=== PATIENT | male | born 1995 | race Caucasian/White ===

== ENCOUNTER 2022-07-26 13:20 | Emergency (ER) | payer OTHER, SELFPAY ==
[2022-07-26 13:31] VITALS: BP 127/69; PULSE 73; RESP 16; TEMP 36.3; O2SAT 97; BMI 22.9
--- NOTE | 2022-07-26 13:53 | PC.NURSE ---
Patient ambulatory to room with steady gait.
[2022-07-26 14:18] LABS: Influenza A - CEPHEID Flu A NEGATIVE (NEGATIVE); Influenza B - CEPHEID Flu B NEGATIVE (NEGATIVE); Respiratory Syncytial Virus Negative (Negative)
[2022-07-26 14:22] LABS: COVID-19 CEPHEID 4-PLEX PCR Negative (Negative)
--- NOTE | 2022-07-26 15:05 | ED_ITS ---
HPI - Headache <Romina Caldera PA-C - Last Filed: 07/26/22 21:57> General Chief Complaint: Headache Stated Complaint: Headache Time Seen by Provider: 07/26/22 14:19 Mode of arrival: Ambulatory History of Present Illness HPI Narrative: the patient is 26 years old male without significant medical history presents today with the 24 hours history of body aches, headache, neck pain shoulder pain. He also may have some dry cough, sore throat. He denies nausea vomiting diarrhea, admits to some low-grade fever and chills. he did try some [id number] preparation, without relief. Onset (ago): hour(s) (24 ) Related Data Previous Rx's Medication Instructions Recorded naproxen 500 mg tablet (Naprosyn) 500 mg PO BID PRN pain fever 07/26/22 headache #20 tabs Allergies Allergy/AdvReac Type Severity Reaction Status Date / Time No Known Drug Allergies Allergy Verified 07/26/22 13:31 Review of Systems <Romina Caldera PA-C - Last Filed: 07/26/22 21:57> Review of Systems Narrative: 12 point review of systems is negative except for those stated above Patient History <Romina Caldera PA-C - Last Filed: 07/26/22 21:57> Social History Smoking Status: Former smoker Smoking Status: Former smoker alcohol intake frequency: a few times a week Substance Use Type: does not use Exam <Romina Caldera PA-C - Last Filed: 07/26/22 21:57> Narrative Exam Narrative: GENERAL: 26 year old patient appears stated age. Well-developed patient, in no acute distress. HEAD: Atraumatic. Normocephalic. EYES: Pupils equal round and reactive. Extraocular motions intact. No scleral icterus. No injection or drainage. ENT: Nose without bleeding, purulent drainage. Throat without erythema, tonsillar hypertrophy or exudate. Airway patent. NECK: Trachea midline. Non tender CARDIOVASCULAR: Regular rate and rhythm without murmurs, gallops, or rubs. RESPIRATORY: Clear to auscultation. Breath sounds equal bilaterally. No wheezes, rales, or rhonchi. GASTROINTESTINAL: Abdomen soft, non-tender, nondistended. EXTREMITIES: No edema or joint tenderness. BACK: upper trapezial areas slightly tender on percussion, paracervical muscle tenderness, without deformity or crepitance. No flank tenderness. NEURO: AOx3. no focal deficits SKIN: No rash or erythema of visible areas Initial Vital Signs Initial Vital Signs: Vital Signs Temperature 97.4 F L 07/26/22 13:31 Pulse Rate 73 07/26/22 13:31 Respiratory Rate 16 07/26/22 13:31 Blood Pressure 127/69 07/26/22 13:31 Pulse Oximetry 97 07/26/22 13:31 Oxygen Delivery Method 07/26/22 13:31 <Nelly Montenegro DO - Last Filed: 07/30/22 01:58> Initial Vital Signs Initial Vital Signs: Vital Signs Temperature 97.4 F L 07/26/22 13:31 Pulse Rate 73 07/26/22 13:31 Respiratory Rate 16 07/26/22 13:31 Blood Pressure 127/69 07/26/22 13:31 Pulse Oximetry 97 07/26/22 13:31 Oxygen Delivery Method 07/26/22 13:31 Course <Romina Caldera PA-C - Last Filed: 07/26/22 21:57> Orders Ordered: ED Orders 07/26/22 13:35 Covid-19 + FLU A/B + RSV - PCR Stat Vital Signs Vital signs: Vital Signs - 8 hr 07/26/22 13:31 Temperature 97.4 F L Pulse Rate 73 Respiratory Rate 16 Blood Pressure 127/69 Pulse Oximetry 97 Oxygen Delivery Method Room Air <Nelly Montenegro DO - Last Filed: 07/30/22 01:58> Orders Ordered: ED Orders 07/26/22 13:35 Covid-19 + FLU A/B + RSV - PCR Stat Vital Signs Vital signs: Vital Signs - 8 hr 07/26/22 13:31 Temperature 97.4 F L Pulse Rate 73 Respiratory Rate 16 Blood Pressure 127/69 Pulse Oximetry 97 Oxygen Delivery Method Room Air MDM - Headache <Romina Caldera PA-C - Last Filed: 07/26/22 21:57> Differential Diagnosis Differential diagnosis: Likely other ( upper respiratory viral syndrome) Lab Data Labs: Lab Results 07/26/22 Range/Units 13:35 SARS-CoV-2 (PCR) Negative (Negative) Influenza A (RT-PCR) Flu a negative (NEGATIVE) Influenza B (RT-PCR) Flu b negative (NEGATIVE) RSV (PCR) Negative (Negative) MDM Narrative Medical decision making narrative: discussed with patient diagnosis and treatment. Multiple etiologies for patient's symptoms considered including, but not limited to: Tension headache, upper respiratory infection due to several respiratory viruses Prior Charts reviewed: yes Labs reviewed and interpreted by myself: yes Patient's symptoms improved over duration of stay Findings and discharge diagnosis discussed with patient/family followed by verbalization of understanding Return precautions discussed with patient/family whom verbalize understanding of diagnosis and plan <Nelly Montenegro, DO - Last Filed: 07/30/22 01:58> Lab Data Labs: Lab Results 07/26/22 Range/Units 13:35 SARS-CoV-2 (PCR) Negative (Negative) Influenza A (RT-PCR) Flu a negative (NEGATIVE) Influenza B (RT-PCR) Flu b negative (NEGATIVE) RSV (PCR) Negative (Negative) Discharge Plan Departure Patient Disposition: Home Clinical Impression: Myalgia Headache Qualifiers: Headache type: cervicogenic headache Qualified Code(s): G44.86 - Cervicogenic headache Instructions: DI for Headache Activity Restrictions/Additional Instructions: *You have been diagnosed with headache probably due to viral illness *What to do: *Please continue to take your regular medications as directed. New medication prescriptions sent to your pharmacy: Naproxen 500 mh twice a day *Please follow up with your primary care provider in 2-3 days, call for an appointment. Let them know you were seen in the Emergency Department and that we ask that you be seen in follow up. We will electronically transmit a record of today's note if your PCP is in our system *If you do not have a primary care provider please contact the [facility] Resource line at [phone]. They will ask some questions about your medical history and help get you set up with a doctor in the community. *Return to Emergency Department if you should have any new, worsening or co ncerning symptoms, such as fever greater than 103 F, shaking chills, worsening pain, persistent vomiting, headache or other bothersome symptoms Prescriptions: New naproxen [Naprosyn] 500 mg tablet 500 mg PO BID PRN (Reason: pain fever headache ) Qty: 20 0RF Stand Alone Forms: Patient Portal/API, Work Release Note <Nelly Montenegro, DO - Last Filed: 07/30/22 01:58> Cosign ED Attending Cosignature Attestation: I was immediately available in the department for consultation. Documentation has been reviewed.
== END 2022-07-26 15:27 | disposition home or self-care (01) ==
PROVIDERS: Emergency Medicine; Emergency Provider Physician Assistant Medical
DX: G44.86 Cervicogenic headache (principal); M79.10 Myalgia, unspecified site
CPT/HCPCS: 0241U; 99281; 99282